=== PATIENT | male | born 1960 | race Caucasian/White ===

== ENCOUNTER 2020-08-03 17:43 | Inpatient (IN) | payer BC, MEDICARE ==
[~2020-08-03] VITALS: Ht 188 cm; Wt 111.1 kg
[~2020-08-03 17:43] MED LIST: ALTERIL PO; ASCO500T24 PO; CHOL400T57 CORPAK; EMLA TOP; OXYC-150 PO; QUET400T PO; [UNRECOGNIZED DRUG - CODE] TP
[2020-08-03 18:36] LABS: BASOPHILS # (AUTO) 0.1 X10'3 (0-0.2); BASOPHILS % (AUTO) 1.3 % (0-1); EOSINOPHILS # (AUTO) 0.2 X10'3 (0-0.9); EOSINOPHILS % (AUTO) 2.9 % (0-6); HEMOGLOBIN 12.7 g/dl (14.0-17.9); LYMPHOCYTES # (AUTO) 1.9 X10'3 (1.1-4.8); LYMPHOCYTES % (AUTO) 25.8 % (21-51); MEAN CORPUSCULAR HEMOGLOBIN 27.8 PG (27.0-31.0); MEAN CORPUSCULAR HGB CONC 34.4 g/dL (33.0-36.5); MEAN CORPUSCULAR VOLUME 80.9 FL (78-98); MONOCYTES # (AUTO) 0.5 X10'3 (0-0.9); MONOCYTES % (AUTO) 6.9 % (2-12); NEUTROPHILS # (AUTO) 4.6 X10'3 (1.8-7.7); NEUTROPHILS % (AUTO) 63.1 % (42-75); PLATELET COUNT 314 X10'3 (140-440); RED BLOOD COUNT 4.58 X10'6 (4.70-6.10); RED CELL DISTRIBUTION WIDTH 14.8 % (11.5-14.5); WHITE BLOOD COUNT 7.3 X10'3 (4.5-11.0)
[2020-08-03 18:53] LABS: ALANINE AMINOTRANSFERASE 14 U/L (12-78); ALBUMIN 3.6 G/DL (3.4-5.0); ALBUMIN/GLOBULIN RATIO 0.9 (1.1-1.5); ALKALINE PHOSPHATASE 146 IU/L (46-116); ANION GAP 10 (8-16); ASPARTATE AMINO TRANSFERASE 11 U/L (10-37); BILIRUBIN,TOTAL 0.6 MG/DL (0.1-1.0); BLOOD UREA NITROGEN 9 MG/DL (7-18); BUN/CREATININE RATIO 12.2 (5.4-32.0); CALCIUM 9.5 MG/DL (8.5-10.1); CHLORIDE 107 MMOL/L (99-107); CREATININE 0.74 MG/DL (0.60-1.10); GLUCOSE 104 MG/DL (70-104); LIPASE 118 U/L (73-393); POTASSIUM 3.5 MMOL/L (3.5-5.1); SODIUM 146 MMOL/L (135-145); TOTAL CARBON DIOXIDE 28.6 MMOL/L (24-32); TOTAL PROTEIN 7.7 G/DL (6.4-8.2); eGFR > 90 ML/MIN
[2020-08-03 19:42] LABS: CLARITY,URINE CLOUDY (Clear); COLOR,URINE YELLOW (Yellow); GLUCOSE, URINE NEGATIVE (Neg); KETONES,URINE NEGATIVE (Neg); LEUKOCYTE ESTERASE ,URINE MODERATE (Neg); NITRITES, URINE NEGATIVE (Neg); OCCULT BLOOD,URINE NEGATIVE (Neg); PH,URINE >=9.0 (4.8-8.0); PROTEIN,URINE 30 mg/dl (Neg)
[2020-08-03] MEDS ORDERED: normal saline 1000ML IV soln IVB ONE ×2 (19:45→20:05)
[2020-08-03 19:55] LABS: UA COLLECTION TYPE FOLEY CATH
[2020-08-03 19:56] LABS: BACTERIA,URINE FEW /HPF (Neg); RBC,URINE NONE SEEN /HPF (0-2); WBC,URINE 20-30 /HPF (0-4)
[2020-08-03 19:57] LABS: AMORPHOUS PHOSPHATES 2+; SQUAMOUS EPITHELIAL CELL,UR FEW /LPF (FEW)
[2020-08-03] MEDS ORDERED: LORazepam 2 mg/ml vial IV ONE (20:05)
[2020-08-03] MEDS ORDERED: morphine 4 MG/ML inj SYRINge IV PRN (20:05)
[2020-08-03] MEDS ORDERED: ondansetron/PF 4mg/2ml inj IV ONE ×2 (20:05→21:40)
[2020-08-03] MEDS ORDERED: proCHLORperazine 10 MG/2 ml inj IV ONE (21:05)
[2020-08-03] MEDS ORDERED: CefTRIAXone/D5W-Rocephin 1gm 50 ML IV ONE (21:40)
[2020-08-03] MEDS ORDERED: QUET-1 PO (22:05)
[2020-08-03] MEDS ORDERED: FURO-149 PO (22:07)
[2020-08-03] MEDS ORDERED: GABA800T11 PO (22:07)
[2020-08-03] MEDS ORDERED: FLO0.4C PO (22:08)
[2020-08-03] MEDS ORDERED: VENL150C2 PO (22:10)
[2020-08-03] MEDS ORDERED: MORP-92 PO (22:11)
[2020-08-03] MEDS ORDERED: METH-797 PO (22:11)
[2020-08-03] MEDS ORDERED: PANT-47 PO (22:13)
[2020-08-03] MEDS ORDERED: POTA10CA44 PO (22:14)
[2020-08-03] MEDS ORDERED: TRAZ-251 PO (22:15)
[2020-08-03] MEDS ORDERED: VENL-191 PO (22:16)
[2020-08-03] MEDS ORDERED: FENO48TA15 PO (22:18)
[2020-08-03] MEDS ORDERED: METO100T7 PO (22:19)
[2020-08-03] MEDS ORDERED: oxyCODONE/APAP 10/325mg tablet PO PRN (22:25)
[2020-08-03] MEDS ORDERED: potassium Cl 20 mEq SR tablet PO PRN ×2 (22:25)
[2020-08-03] MEDS ORDERED: magnesium 2GM in 50ml NS 50 ML IV PRN (22:25)
[2020-08-03] MEDS ORDERED: magnesium 4gm in 100ml NS 100 ML IV PRN (22:25)
[2020-08-03] MEDS ORDERED: HYDROcodone/acetaminophen 5mg/325mg tablet PO PRN (22:25)
[2020-08-03] MEDS ORDERED: acetaminophen 325mg tablet PO PRN ×2 (22:25)
[2020-08-03] MEDS ORDERED: potassium Cl 40MEQ/1/2NS 520ml 520 ML IV PRN ×2 (22:25)
[2020-08-03] MEDS ORDERED: magnesium hydroxide 30ml (MOM) UD suspension PO PRN (22:25)
[2020-08-03] MEDS ORDERED: mag hydrox/Alum hydrox/simeth 30ml oral suspension PO PRN (22:25)
[2020-08-03] MEDS ORDERED: ondansetron/PF 4mg/2ml inj IV PRN (22:25)
[2020-08-03] MEDS ORDERED: proCHLORperazine 10 MG/2 ml inj IV PRN (22:30)
--- NOTE | 2020-08-03 22:37 | NUR ---
PATIENT STOPPED ELIQUIS ABOUT ONE MONTH AGO PATIENT RECENTLY GOT IN TO SEE DR CAMPOS PAD TUFTER
--- NOTE | 2020-08-03 22:37 | NUR ---
New IV started to R hand, IV abx infusing through that
[2020-08-03] MEDS: gabapentin 400mg capsule PO SCH (23:50)
[2020-08-04 01:00] VITALS: BP 136/82
[2020-08-04] MEDS: HYDROcodone/acetaminophen 10/325mg tab PO PRN ×3 (01:59→21:06)
[2020-08-04] MEDS: pantoprazole 40MG/NS 100ML BAG 100 ML IV SCH ×2 (02:39→06:43)
[2020-08-04] MEDS: potassium Cl 20mEq in NS 1,000 ML IV SCH ×3 (02:40→19:58)
[2020-08-04] MEDS: traZODone 50mg tablet PO SCH ×2 (02:42→19:55)
[2020-08-04] MEDS: quetiapine 100mg tablet PO SCH ×2 (02:42→19:55)
[2020-08-04] MEDS: morphine 2 MG/ML inj. syringe IV PRN ×2 (05:13→16:57)
[2020-08-04 05:59] LABS: BASOPHILS # (AUTO) 0.1 X10'3 (0-0.2); BASOPHILS % (AUTO) 1.1 % (0-1); EOSINOPHILS # (AUTO) 0.3 X10'3 (0-0.9); EOSINOPHILS % (AUTO) 2.9 % (0-6); HEMATOCRIT 32.9 % (42.0-52.0); HEMOGLOBIN 11.1 g/dl (14.0-17.9); LYMPHOCYTES # (AUTO) 1.9 X10'3 (1.1-4.8); LYMPHOCYTES % (AUTO) 22.2 % (21-51); MEAN CORPUSCULAR HEMOGLOBIN 27.5 PG (27.0-31.0); MEAN CORPUSCULAR HGB CONC 33.8 g/dL (33.0-36.5); MEAN CORPUSCULAR VOLUME 81.2 FL (78-98); MEAN PLATELET VOLUME 7.8 FL (7.4-10.4); MONOCYTES # (AUTO) 0.7 X10'3 (0-0.9); MONOCYTES % (AUTO) 8.5 % (2-12); NEUTROPHILS # (AUTO) 5.6 X10'3 (1.8-7.7); NEUTROPHILS % (AUTO) 65.3 % (42-75); PLATELET COUNT 257 X10'3 (140-440); RED BLOOD COUNT 4.05 X10'6 (4.70-6.10); RED CELL DISTRIBUTION WIDTH 14.6 % (11.5-14.5); WHITE BLOOD COUNT 8.5 X10'3 (4.5-11.0)
[2020-08-04 06:24] LABS: ALANINE AMINOTRANSFERASE 15 U/L (12-78); ALBUMIN 3.1 G/DL (3.4-5.0); ALBUMIN/GLOBULIN RATIO 0.9 (1.1-1.5); ALKALINE PHOSPHATASE 122 IU/L (46-116); ANION GAP 10 (8-16); ASPARTATE AMINO TRANSFERASE 13 U/L (10-37); BILIRUBIN,TOTAL 0.6 MG/DL (0.1-1.0); BLOOD UREA NITROGEN 9 MG/DL (7-18); BUN/CREATININE RATIO 13.6 (5.4-32.0); CALCIUM 8.6 MG/DL (8.5-10.1); CHLORIDE 108 MMOL/L (99-107); CREATININE 0.66 MG/DL (0.60-1.10); GLUCOSE 99 MG/DL (70-104); MAGNESIUM 1.9 MG/DL (1.5-2.4); POTASSIUM 3.5 MMOL/L (3.5-5.1); SODIUM 144 MMOL/L (135-145); TOTAL CARBON DIOXIDE 26.2 MMOL/L (24-32); TOTAL PROTEIN 6.6 G/DL (6.4-8.2); eGFR > 90 ML/MIN
--- NOTE | 2020-08-04 06:36 | NUR ---
Problems reprioritized. Patient report given, questions answered & plan of care reviewed with AVIVA Vera.
[2020-08-04] MEDS: venlafaxine XR 75mg capsule (Q24H) PO SCH (07:37)
[2020-08-04] MEDS: gabapentin 400mg capsule PO SCH ×3 (07:37→19:55)
[2020-08-04] MEDS: cyclobenzaprine 10mg tablet PO SCH ×3 (07:37→19:55)
[2020-08-04] MEDS: CefTRIAXone/D5W-Rocephin 1gm 50 ML IV SCH (07:37)
[2020-08-04] MEDS: fenofibrate 48mg tablet PO SCH (07:37)
[2020-08-04] MEDS ORDERED: pantoprazole 40mg Tablet.DR PO SCH (08:00)
[2020-08-04] MEDS ORDERED: venlafaxine 37.5mg tablet PO SCH (08:00)
[2020-08-04] MEDS: K and/or MAG REPLACEMENT MC SCH ×2 (08:00→18:39)
[2020-08-04] MEDS ORDERED: pneumococcal 23-VAL P-sac vacc 25 mcg/0.5ml vial IMVAC ONE (10:00)
--- NOTE | 2020-08-04 10:35 | NUR ---
Noted pt current wt 264kg without method or true scaled wt this admit; likely error compared to prior admit wts. Addendum: 08/04/20 at [address] Amended: Links added.
[2020-08-04 13:00] VITALS: BP 133/72
[2020-08-04] MEDS: lactobacillus rhamnosus 10,000 MMU CELLS/CAPSULE PO SCH (19:55)
[2020-08-04] MEDS: pantoprazole 40 MG vial IV SCH (19:56)
[2020-08-04] MEDS: enoxaparin 40mg/0.4ml syringe SQ SCH (19:56)
[2020-08-04 20:00] VITALS: BP 124/87
[2020-08-04] MEDS ORDERED: traZODone 50mg tablet PO SCH (21:00)
[2020-08-04] MEDS ORDERED: quetiapine 100mg tablet PO SCH (21:00)
[2020-08-04] MEDS: tamsulosin 0.4mg capsule PO SCH (21:05)
[2020-08-04] MEDS: metoprolol succinate 25mg (24-HOUR) SR. Tablet PO SCH (21:05)
[2020-08-04 22:00] VITALS: BP 112/75
[2020-08-05] MEDS: HYDROcodone/acetaminophen 10/325mg tab PO PRN ×4 (02:01→17:56)
[2020-08-05] MEDS: potassium Cl 20mEq in NS 1,000 ML IV SCH ×2 (04:11→08:26)
[2020-08-05 04:58] VITALS: BP 115/76
[2020-08-05 06:08] LABS: BASOPHILS # (AUTO) 0.1 X10'3 (0-0.2); BASOPHILS % (AUTO) 1.8 % (0-1); EOSINOPHILS # (AUTO) 0.3 X10'3 (0-0.9); EOSINOPHILS % (AUTO) 6.2 % (0-6); HEMATOCRIT 30.7 % (42.0-52.0); HEMOGLOBIN 10.7 g/dl (14.0-17.9); LYMPHOCYTES # (AUTO) 1.8 X10'3 (1.1-4.8); LYMPHOCYTES % (AUTO) 36.9 % (21-51); MEAN CORPUSCULAR HEMOGLOBIN 27.9 PG (27.0-31.0); MEAN CORPUSCULAR HGB CONC 34.8 g/dL (33.0-36.5); MEAN CORPUSCULAR VOLUME 80.1 FL (78-98); MEAN PLATELET VOLUME 7.5 FL (7.4-10.4); MONOCYTES # (AUTO) 0.3 X10'3 (0-0.9); NEUTROPHILS # (AUTO) 2.4 X10'3 (1.8-7.7); NEUTROPHILS % (AUTO) 48.1 % (42-75); PLATELET COUNT 196 X10'3 (140-440); RED BLOOD COUNT 3.83 X10'6 (4.70-6.10); RED CELL DISTRIBUTION WIDTH 14.9 % (11.5-14.5); WHITE BLOOD COUNT 4.9 X10'3 (4.5-11.0)
[2020-08-05 06:28] LABS: ALANINE AMINOTRANSFERASE 15 U/L (12-78); ALBUMIN 2.8 G/DL (3.4-5.0); ALBUMIN/GLOBULIN RATIO 0.9 (1.1-1.5); ALKALINE PHOSPHATASE 109 IU/L (46-116); ANION GAP 7 (8-16); ASPARTATE AMINO TRANSFERASE 14 U/L (10-37); BILIRUBIN,TOTAL 0.4 MG/DL (0.1-1.0); BLOOD UREA NITROGEN 8 MG/DL (7-18); BUN/CREATININE RATIO 14.3 (5.4-32.0); CALCIUM 8.9 MG/DL (8.5-10.1); CHLORIDE 109 MMOL/L (99-107); CREATININE 0.56 MG/DL (0.60-1.10); GLUCOSE 90 MG/DL (70-104); POTASSIUM 3.7 MMOL/L (3.5-5.1); SODIUM 142 MMOL/L (135-145); TOTAL CARBON DIOXIDE 25.7 MMOL/L (24-32); eGFR > 90 ML/MIN
[2020-08-05] MEDS: morphine 2 MG/ML inj. syringe IV PRN ×3 (06:31→20:36)
--- NOTE | 2020-08-05 06:32 | NUR ---
Patient in room [facility] 4010. I have received report from Buck CHICAS and had the opportunity to ask questions and assume patient care.
[2020-08-05] MEDS: cyclobenzaprine 10mg tablet PO SCH ×3 (08:13→20:35)
[2020-08-05] MEDS: pantoprazole 40 MG vial IV SCH ×2 (08:13→20:35)
[2020-08-05] MEDS: lactobacillus rhamnosus 10,000 MMU CELLS/CAPSULE PO SCH ×2 (08:13→20:35)
[2020-08-05] MEDS: CefTRIAXone/D5W-Rocephin 1gm 50 ML IV SCH (08:13)
[2020-08-05] MEDS: gabapentin 400mg capsule PO SCH ×2 (08:14→17:56)
[2020-08-05] MEDS: fenofibrate 48mg tablet PO SCH (08:14)
[2020-08-05] MEDS: venlafaxine XR 75mg capsule (Q24H) PO SCH (08:14)
[2020-08-05 11:00] VITALS: BP 101/71
[2020-08-05] MEDS: K and/or MAG REPLACEMENT MC SCH ×2 (12:17→20:00)
[2020-08-05] MEDS ORDERED: pneumococcal 23-VAL P-sac vacc 25 mcg/0.5ml vial IMVAC ONE (14:20)
[2020-08-05 18:00] VITALS: BP 124/89
--- NOTE | 2020-08-05 18:50 | NUR ---
patient seen by Dr narendra Erickson consuled with regards suzette pubic catheter . Medicated for pain with effect. worked with PT . Report given to diane CHICAS
[2020-08-05] MEDS: tamsulosin 0.4mg capsule PO SCH (20:35)
[2020-08-05] MEDS: traZODone 50mg tablet PO SCH (20:35)
[2020-08-05] MEDS: quetiapine 100mg tablet PO SCH (20:35)
[2020-08-05] MEDS: metoprolol succinate 25mg (24-HOUR) SR. Tablet PO SCH (20:36)
[2020-08-05] MEDS: enoxaparin 40mg/0.4ml syringe SQ SCH (20:36)
[2020-08-05 22:00] VITALS: BP 123/77
[2020-08-06] MEDS: gabapentin 400mg capsule PO SCH ×4 (00:08→23:25)
[2020-08-06] MEDS: potassium Cl 20mEq in NS 1,000 ML IV SCH ×3 (00:09→19:47)
[2020-08-06] MEDS: HYDROcodone/acetaminophen 10/325mg tab PO PRN ×2 (02:21→19:43)
[2020-08-06] MEDS: morphine 2 MG/ML inj. syringe IV PRN ×4 (04:12→21:00)
[2020-08-06 06:00] VITALS: BP 112/75
[2020-08-06 07:02] LABS: BASOPHILS # (AUTO) 0.1 X10'3 (0-0.2); BASOPHILS % (AUTO) 0.8 % (0-1); EOSINOPHILS # (AUTO) 0.4 X10'3 (0-0.9); EOSINOPHILS % (AUTO) 4.2 % (0-6); HEMATOCRIT 32.6 % (42.0-52.0); HEMOGLOBIN 11.3 g/dl (14.0-17.9); LYMPHOCYTES # (AUTO) 1.4 X10'3 (1.1-4.8); LYMPHOCYTES % (AUTO) 17.1 % (21-51); MEAN CORPUSCULAR HGB CONC 34.7 g/dL (33.0-36.5); MEAN CORPUSCULAR VOLUME 80.7 FL (78-98); MEAN PLATELET VOLUME 7.7 FL (7.4-10.4); MONOCYTES # (AUTO) 0.5 X10'3 (0-0.9); MONOCYTES % (AUTO) 5.4 % (2-12); NEUTROPHILS # (AUTO) 6.1 X10'3 (1.8-7.7); NEUTROPHILS % (AUTO) 72.5 % (42-75); PLATELET COUNT 210 X10'3 (140-440); RED BLOOD COUNT 4.04 X10'6 (4.70-6.10); WHITE BLOOD COUNT 8.4 X10'3 (4.5-11.0)
[2020-08-06 07:31] LABS: ALANINE AMINOTRANSFERASE 12 U/L (12-78); ALBUMIN/GLOBULIN RATIO 0.9 (1.1-1.5); ALKALINE PHOSPHATASE 114 IU/L (46-116); ANION GAP 7 (8-16); ASPARTATE AMINO TRANSFERASE 11 U/L (10-37); BILIRUBIN,TOTAL 0.5 MG/DL (0.1-1.0); BLOOD UREA NITROGEN 9 MG/DL (7-18); BUN/CREATININE RATIO 14.1 (5.4-32.0); CALCIUM 9.2 MG/DL (8.5-10.1); CHLORIDE 106 MMOL/L (99-107); CREATININE 0.64 MG/DL (0.60-1.10); GLUCOSE 86 MG/DL (70-104); MAGNESIUM 1.9 MG/DL (1.5-2.4); POTASSIUM 3.9 MMOL/L (3.5-5.1); SODIUM 140 MMOL/L (135-145); TOTAL CARBON DIOXIDE 26.6 MMOL/L (24-32); TOTAL PROTEIN 6.4 G/DL (6.4-8.2); eGFR > 90 ML/MIN
[2020-08-06] MEDS: K and/or MAG REPLACEMENT MC SCH ×2 (08:00→19:28)
[2020-08-06] MEDS: CefTRIAXone/D5W-Rocephin 1gm 50 ML IV SCH (08:10)
[2020-08-06] MEDS: cyclobenzaprine 10mg tablet PO SCH ×3 (08:11→20:50)
[2020-08-06] MEDS: venlafaxine XR 75mg capsule (Q24H) PO SCH (08:11)
[2020-08-06] MEDS: fenofibrate 48mg tablet PO SCH (08:11)
[2020-08-06] MEDS: lactobacillus rhamnosus 10,000 MMU CELLS/CAPSULE PO SCH ×2 (08:11→19:28)
[2020-08-06] MEDS: pantoprazole 40 MG vial IV SCH ×2 (08:12→19:28)
--- NOTE | 2020-08-06 09:02 | NUR ---
called angio, they do not place or replace suprapubic catheters.
--- NOTE | 2020-08-06 09:44 | NUR ---
Gerard Consult: Gerard 12; skin intact per EMR. Pt admit DX intractable N/V possible r/t gastritis per MD note. N/V improved w/ pt PO 100% avg heart healthy diet receiving adaptive wear for hx CVA and L hemiparesis per EMR. Noted pt current wt 264kg without method or true scaled wt this admit; ANTHONY d/w RN who reports likely error supposed to be pounds. RD requested scaled wt this admit. Will send double proteins TIDWM/chopped meats for satiety/ease of PO given PO hx; dietary notified. LBM 08/03. Will continue to monitor. Rec: 1. continue heart healthy diet per MD; adaptive wear, chopped meats, double proteins TIDWM for satiety 2. routine bowel care 3. scaled wt this admit Addendum: 08/06/20 at [address] Amended: Links added.
[2020-08-06 10:00] VITALS: BP 100/70
--- NOTE | 2020-08-06 10:32 | NUR ---
Dr Bradshaw bedside. was made aware that IR has canceled his order for changing suprapubic catheter. states he will call urology to do the change out at bedside. RN awaiting update.
[2020-08-06 18:00] VITALS: BP 130/78
[2020-08-06] MEDS: enoxaparin 40mg/0.4ml syringe SQ SCH (19:27)
[2020-08-06] MEDS: tamsulosin 0.4mg capsule PO SCH (20:49)
[2020-08-06] MEDS: quetiapine 100mg tablet PO SCH (20:49)
[2020-08-06] MEDS: traZODone 50mg tablet PO SCH (20:50)
[2020-08-06] MEDS: metoprolol succinate 25mg (24-HOUR) SR. Tablet PO SCH (20:51)
[2020-08-06 22:00] VITALS: BP 132/79
[2020-08-07] MEDS: HYDROcodone/acetaminophen 10/325mg tab PO PRN ×4 (00:16→16:19)
[2020-08-07] MEDS: morphine 2 MG/ML inj. syringe IV PRN ×4 (01:44→19:48)
[2020-08-07 06:00] VITALS: BP 120/79
[2020-08-07] MEDS: venlafaxine XR 75mg capsule (Q24H) PO SCH (07:44)
[2020-08-07] MEDS: cyclobenzaprine 10mg tablet PO SCH ×3 (07:44→19:46)
[2020-08-07] MEDS: pantoprazole 40 MG vial IV SCH (07:44)
[2020-08-07] MEDS: lactobacillus rhamnosus 10,000 MMU CELLS/CAPSULE PO SCH ×2 (07:45→19:46)
[2020-08-07] MEDS: gabapentin 400mg capsule PO SCH ×3 (07:45→21:21)
[2020-08-07] MEDS: fenofibrate 48mg tablet PO SCH (07:45)
[2020-08-07 07:48] LABS: BASOPHILS # (AUTO) 0.1 X10'3 (0-0.2); BASOPHILS % (AUTO) 0.8 % (0-1); EOSINOPHILS # (AUTO) 0.4 X10'3 (0-0.9); EOSINOPHILS % (AUTO) 6.2 % (0-6); HEMATOCRIT 32.1 % (42.0-52.0); HEMOGLOBIN 11.1 g/dl (14.0-17.9); LYMPHOCYTES # (AUTO) 1.7 X10'3 (1.1-4.8); LYMPHOCYTES % (AUTO) 27.6 % (21-51); MEAN CORPUSCULAR HEMOGLOBIN 27.8 PG (27.0-31.0); MEAN CORPUSCULAR HGB CONC 34.6 g/dL (33.0-36.5); MEAN CORPUSCULAR VOLUME 80.4 FL (78-98); MEAN PLATELET VOLUME 8.2 FL (7.4-10.4); MONOCYTES # (AUTO) 0.4 X10'3 (0-0.9); MONOCYTES % (AUTO) 5.7 % (2-12); NEUTROPHILS # (AUTO) 3.7 X10'3 (1.8-7.7); NEUTROPHILS % (AUTO) 59.7 % (42-75); PLATELET COUNT 187 X10'3 (140-440); RED BLOOD COUNT 3.99 X10'6 (4.70-6.10); WHITE BLOOD COUNT 6.1 X10'3 (4.5-11.0)
[2020-08-07] MEDS: CefTRIAXone/D5W-Rocephin 1gm 50 ML IV SCH (07:53)
[2020-08-07] MEDS: K and/or MAG REPLACEMENT MC SCH ×2 (07:53→18:47)
[2020-08-07] MEDS: potassium Cl 20mEq in NS 1,000 ML IV SCH (07:53)
[2020-08-07 07:59] LABS: ALANINE AMINOTRANSFERASE 14 U/L (12-78); ALBUMIN 2.9 G/DL (3.4-5.0); ALBUMIN/GLOBULIN RATIO 0.8 (1.1-1.5); ALKALINE PHOSPHATASE 112 IU/L (46-116); ANION GAP 6 (8-16); ASPARTATE AMINO TRANSFERASE 11 U/L (10-37); BILIRUBIN,TOTAL 0.4 MG/DL (0.1-1.0); BLOOD UREA NITROGEN 11 MG/DL (7-18); CALCIUM 8.7 MG/DL (8.5-10.1); CHLORIDE 106 MMOL/L (99-107); CREATININE 0.58 MG/DL (0.60-1.10); GLUCOSE 94 MG/DL (70-104); MAGNESIUM 2.1 MG/DL (1.5-2.4); POTASSIUM 3.9 MMOL/L (3.5-5.1); SODIUM 139 MMOL/L (135-145); TOTAL CARBON DIOXIDE 27.2 MMOL/L (24-32); TOTAL PROTEIN 6.4 G/DL (6.4-8.2); eGFR > 90 ML/MIN
[2020-08-07 10:00] VITALS: BP 91/59
--- NOTE | 2020-08-07 12:27 | NUR ---
PAGER ID: [phone] MESSAGE: [phone] Zhen Wolf RN. Pt requesting regular diet. can I put in new diet order.
--- NOTE | 2020-08-07 16:35 | NUR ---
PAGER ID: [phone] MESSAGE: [id number] Zhen Wolf RN, Pt again asking for regular diet order. Morning labs Na+ 139
[2020-08-07 18:00] VITALS: BP 115/64
[2020-08-07] MEDS: enoxaparin 40mg/0.4ml syringe SQ SCH (19:46)
[2020-08-07] MEDS: tamsulosin 0.4mg capsule PO SCH (19:46)
[2020-08-07] MEDS: metoprolol succinate 25mg (24-HOUR) SR. Tablet PO SCH (21:21)
[2020-08-07] MEDS: traZODone 50mg tablet PO SCH (21:21)
[2020-08-07] MEDS: quetiapine 100mg tablet PO SCH (21:21)
[2020-08-07 22:00] VITALS: BP 128/74
[2020-08-08] MEDS: morphine 2 MG/ML inj. syringe IV PRN ×4 (00:02→13:34)
[2020-08-08 06:00] VITALS: BP 109/72
[2020-08-08 06:52] LABS: BASOPHILS # (AUTO) 0.1 X10'3 (0-0.2); BASOPHILS % (AUTO) 1.3 % (0-1); EOSINOPHILS # (AUTO) 0.4 X10'3 (0-0.9); EOSINOPHILS % (AUTO) 8.2 % (0-6); HEMATOCRIT 33.1 % (42.0-52.0); HEMOGLOBIN 11.4 g/dl (14.0-17.9); LYMPHOCYTES # (AUTO) 1.7 X10'3 (1.1-4.8); LYMPHOCYTES % (AUTO) 32.3 % (21-51); MEAN CORPUSCULAR HEMOGLOBIN 27.9 PG (27.0-31.0); MEAN CORPUSCULAR HGB CONC 34.5 g/dL (33.0-36.5); MEAN CORPUSCULAR VOLUME 80.7 FL (78-98); MEAN PLATELET VOLUME 7.9 FL (7.4-10.4); MONOCYTES # (AUTO) 0.3 X10'3 (0-0.9); MONOCYTES % (AUTO) 6.1 % (2-12); NEUTROPHILS # (AUTO) 2.8 X10'3 (1.8-7.7); NEUTROPHILS % (AUTO) 52.1 % (42-75); PLATELET COUNT 165 X10'3 (140-440); RED CELL DISTRIBUTION WIDTH 15.2 % (11.5-14.5); WHITE BLOOD COUNT 5.3 X10'3 (4.5-11.0)
[2020-08-08 07:19] LABS: ALANINE AMINOTRANSFERASE 15 U/L (12-78); ALBUMIN/GLOBULIN RATIO 0.8 (1.1-1.5); ALKALINE PHOSPHATASE 113 IU/L (46-116); ANION GAP 6 (8-16); ASPARTATE AMINO TRANSFERASE 12 U/L (10-37); BILIRUBIN,TOTAL 0.5 MG/DL (0.1-1.0); BLOOD UREA NITROGEN 17 MG/DL (7-18); BUN/CREATININE RATIO 28.3 (5.4-32.0); CALCIUM 9.3 MG/DL (8.5-10.1); CHLORIDE 104 MMOL/L (99-107); GLUCOSE 90 MG/DL (70-104); MAGNESIUM 2.3 MG/DL (1.5-2.4); SODIUM 138 MMOL/L (135-145); TOTAL CARBON DIOXIDE 28.1 MMOL/L (24-32); TOTAL PROTEIN 6.6 G/DL (6.4-8.2); eGFR > 90 ML/MIN
[2020-08-08] MEDS: cyclobenzaprine 10mg tablet PO SCH ×2 (07:23→13:34)
[2020-08-08] MEDS: gabapentin 400mg capsule PO SCH (07:24)
[2020-08-08] MEDS: fenofibrate 48mg tablet PO SCH (07:24)
[2020-08-08] MEDS: lactobacillus rhamnosus 10,000 MMU CELLS/CAPSULE PO SCH (07:24)
[2020-08-08] MEDS: venlafaxine XR 75mg capsule (Q24H) PO SCH (07:24)
[2020-08-08] MEDS: CefTRIAXone/D5W-Rocephin 1gm 50 ML IV SCH (07:25)
[2020-08-08] MEDS ORDERED: pantoprazole 40mg Tablet.DR PO SCH (07:30)
[2020-08-08] MEDS: K and/or MAG REPLACEMENT MC SCH (08:00)
[2020-08-08 10:00] VITALS: BP 109/68
[2020-08-08] MEDS ORDERED: CEFD300C3 PO (13:40)
--- NOTE | 2020-08-08 16:06 | NUR ---
discharge instructions given to patient, verbalized understanding. Discharged home with . PT tranferred patient from wheelchair to car, patient tolerated transfer well. Patient's condition, stable.
== END 2020-08-08 15:50 | disposition home health service (06) | DRG 690 ==
LOC: ER 17:43 → ED HOLD 22:29 → ORTHO 4S 08-04 00:55
PROVIDERS: ADMIT Family Medicine; ATTEND Family Medicine
PROC: 3E0234Z Introduction of Serum, Toxoid and Vaccine into Muscle, Percutaneous Approach (ICD-10-PCS; principal; 2020-08-05)
DX: N39.0 Urinary tract infection, site not specified (principal); E87.0 Hyperosmolality and hypernatremia; K29.00 Acute gastritis without bleeding; B96.20 Unspecified Escherichia coli [E. coli] as the cause of diseases classified elsewhere; I10 Essential (primary) hypertension; Z66 Do not resuscitate; G89.29 Other chronic pain; M54.9 Dorsalgia, unspecified; Z82.49 Family history of ischemic heart disease and other diseases of the circulatory system; Z23 Encounter for immunization; Z79.899 Other long term (current) drug therapy
CPT/HCPCS: 36415; 74176; 76700; 80053; 81001; 83605; 83690; 83735; 85025; 87077; 87081; 87088; 87186; 90732; 96374; 96375; 97110; 97162; 97530; 97535; 99285; C9113; G0378; J0696; J0780; J1650; J2060; J2270; J2405; J3480; J7030

== ENCOUNTER 2022-11-07 08:01 | Emergency (ER) | payer MEDICARE, MEDICAID ==
[~2022-11-07] VITALS: Ht 185.4 cm; Wt 136.4 kg
[~2022-11-07 08:01] MED LIST changes: -ALTERIL PO; -ASCO500T24 PO; -CHOL400T57 CORPAK; -EMLA TOP; +FENO48TA15 PO; +FLO0.4C PO; +FURO-149 PO; +GABA800T11 PO; +METH-797 PO; +METO100T7 PO; +MORP-92 PO; +PANT-47 PO; +POTA10CA85 PO; +QUET-1 PO; -QUET400T PO; +TRAZ-251 PO; +VENL150C4 PO; -[UNRECOGNIZED DRUG - CODE] TP
[2022-11-07 08:07] VITALS: TEMP 98
[2022-11-07 10:53] LABS: BASOPHILS # (AUTO) 0.1 X10'3 (0-0.2); BASOPHILS % (AUTO) 1.2 % (0-1); EOSINOPHILS # (AUTO) 0.4 X10'3 (0-0.9); HEMOGLOBIN 12.7 g/dl (14.0-17.9); LYMPHOCYTES # (AUTO) 1.3 X10'3 (1.1-4.8); MEAN PLATELET VOLUME 8.3 FL (7.4-10.4); NEUTROPHILS # (AUTO) 3.4 X10'3 (1.8-7.7)
[2022-11-07 10:54] LABS: EOSINOPHILS % (AUTO) 7.2 % (0-6); HEMATOCRIT 36.4 % (42.0-52.0); LYMPHOCYTES % (AUTO) 23.8 % (21-51); MEAN CORPUSCULAR HEMOGLOBIN 27.9 PG (27.0-31.0); MEAN CORPUSCULAR HGB CONC 34.9 g/dL (33.0-36.5); MONOCYTES # (AUTO) 0.4 X10'3 (0-0.9); MONOCYTES % (AUTO) 6.4 % (2-12); NEUTROPHILS % (AUTO) 61.4 % (42-75); PLATELET COUNT 129 X10'3 (140-440); RED BLOOD COUNT 4.55 X10'6 (4.70-6.10); WHITE BLOOD COUNT 5.6 X10'3 (4.5-11.0)
[2022-11-07 10:58] VITALS: BP 127/88; PULSE 77; RESP 16; O2SAT 98
[2022-11-07 11:03] LABS: ALANINE AMINOTRANSFERASE 25 U/L (12-78); ALBUMIN/GLOBULIN RATIO 1.2 (1.1-1.5); ALKALINE PHOSPHATASE 124 IU/L (46-116); ANION GAP 7 (8-16); ASPARTATE AMINO TRANSFERASE 15 U/L (10-37); BILIRUBIN,TOTAL 0.6 MG/DL (0.1-1.0); BLOOD UREA NITROGEN 16 MG/DL (7-18); CALCIUM 9.2 MG/DL (8.5-10.1); CHLORIDE 105 MMOL/L (99-107); CREATININE 0.84 MG/DL (0.60-1.10); GLUCOSE 101 MG/DL (70-104); POTASSIUM 3.5 MMOL/L (3.5-5.1); SODIUM 142 MMOL/L (135-145); TOTAL CARBON DIOXIDE 30.4 MMOL/L (24-32); TOTAL PROTEIN 7.4 G/DL (6.4-8.2); eCRCL 102 ML/MIN; eGFR > 90 ML/MIN
[2022-11-07 11:07] LABS: BILIRUBIN,URINE NEGATIVE (Neg); CLARITY,URINE CLOUDY (Clear); COLOR,URINE YELLOW (Yellow); GLUCOSE, URINE NEGATIVE (Neg); KETONES,URINE NEGATIVE (Neg); LEUKOCYTE ESTERASE ,URINE MODERATE (Neg); NITRITES, URINE POSITIVE (Neg); OCCULT BLOOD,URINE SMALL (Neg); PROTEIN,URINE NEGATIVE (Neg); UROBILINOGEN,URINE 0.2 E.U/dL (0.2-1.0)
[2022-11-07 11:12] LABS: UA COLLECTION TYPE FOLEY CATH
[2022-11-07 11:24] LABS: MUCUS STRANDS NONE SEEN /LPF (Neg); SQUAMOUS EPITHELIAL CELL,UR NONE SEEN /LPF (FEW); WBC CLUMPS,URINE MODERATE /HPF (NEGATIVE); WBC,URINE 50-100 /HPF (0-4)
[2022-11-07 11:25] LABS: BACTERIA,URINE 4+ /HPF (Neg)
[2022-11-07] MEDS ORDERED: CefTRIAXone 1000mg IM Kit (w/lidocaine diluent) IM ONE (11:35)
[2022-11-07] MEDS ORDERED: CIPR-208 PO (12:17)
== END 2022-11-07 12:26 | disposition home or self-care (01) ==
LOC: ER 08:02
DX: N39.0 Urinary tract infection, site not specified (principal); Z79.2 Long term (current) use of antibiotics; Z79.899 Other long term (current) drug therapy
CPT/HCPCS: 80053; 81001; 85025; 87077; 87088; 87186; 96372; 99283; J0696

== ENCOUNTER 2023-06-02 08:51 | Emergency (ER) | payer MEDICARE, MEDICAID ==
[~2023-06-02 08:51] MED LIST changes: +BACL10TA2 PO; +BUME1TAB34 PO; +BUPR-73 PO; +DOCU-395 PO; +FERR324T PO; -FURO-149 PO; -GABA800T11 PO; -METH-797 PO; +METO-395 PO; -METO100T7 PO; -OXYC-150 PO; +PER5325T PO; +POLY17PO59 PO; +POTA-207 PO; -POTA10CA85 PO; +PREG75CA76 PO; -TRAZ-251 PO; -VENL150C4 PO; +VENL225T3 PO
[2023-06-02 09:56] LABS: ALANINE AMINOTRANSFERASE 29 U/L (12-78); ALBUMIN 4.2 G/DL (3.4-5.0); ALBUMIN/GLOBULIN RATIO 1.4 (1.1-1.5); ALKALINE PHOSPHATASE 134 IU/L (46-116); ANION GAP 7 (8-16); ASPARTATE AMINO TRANSFERASE 24 U/L (10-37); BILIRUBIN,TOTAL 0.7 MG/DL (0.1-1.0); BLOOD UREA NITROGEN 14 MG/DL (7-18); BUN/CREATININE RATIO 16.1 (10.0-20.0); CALCIUM 8.6 MG/DL (8.5-10.1); CHLORIDE 102 MMOL/L (99-107); CREATININE 0.87 MG/DL (0.60-1.10); GLUCOSE 97 MG/DL (70-104); LIPASE 21 U/L (16-77); POTASSIUM 3.4 MMOL/L (3.5-5.1); SODIUM 142 MMOL/L (135-145); TOTAL CARBON DIOXIDE 33.2 MMOL/L (24-32); TOTAL PROTEIN 7.3 G/DL (6.4-8.2); eGFR 88 ML/MIN
[2023-06-02 09:57] LABS: BASOPHILS # (AUTO) 0.1 X10'3 (0-0.2); BASOPHILS % (AUTO) 1.9 % (0-1); EOSINOPHILS # (AUTO) 0.5 X10'3 (0-0.9); EOSINOPHILS % (AUTO) 10.5 % (0-6); HEMATOCRIT 39.3 % (42.0-52.0); HEMOGLOBIN 13.5 g/dl (14.0-17.9); LYMPHOCYTES # (AUTO) 1.3 X10'3 (1.1-4.8); LYMPHOCYTES % (AUTO) 26.2 % (21-51); MEAN CORPUSCULAR HEMOGLOBIN 27.6 PG (27.0-31.0); MEAN CORPUSCULAR HGB CONC 34.3 g/dL (33.0-36.5); MEAN CORPUSCULAR VOLUME 80.4 FL (78-98); MEAN PLATELET VOLUME 8.6 FL (7.4-10.4); MONOCYTES # (AUTO) 0.4 X10'3 (0-0.9); MONOCYTES % (AUTO) 7.6 % (2-12); NEUTROPHILS # (AUTO) 2.7 X10'3 (1.8-7.7); NEUTROPHILS % (AUTO) 53.8 % (42-75); PLATELET COUNT 134 X10'3 (140-440); RED BLOOD COUNT 4.89 X10'6 (4.70-6.10); RED CELL DISTRIBUTION WIDTH 15.1 % (11.5-14.5)
[2023-06-02 15:26] LABS: BILIRUBIN,URINE NEGATIVE (Neg); CLARITY,URINE SLIGHTLY CLOUDY (Clear); COLOR,URINE YELLOW (Yellow); GLUCOSE, URINE NEGATIVE (Neg); KETONES,URINE NEGATIVE (Neg); LEUKOCYTE ESTERASE ,URINE MODERATE (Neg); NITRITES, URINE POSITIVE (Neg); OCCULT BLOOD,URINE MODERATE (Neg); PH,URINE 6.5 (4.8-8.0); PROTEIN,URINE TRACE mg/dl (Neg)
[2023-06-02 15:31] LABS: SQUAMOUS EPITHELIAL CELL,UR FEW /LPF (FEW); UA COLLECTION TYPE CLN CATCH MIDSTREAM
[2023-06-02 15:32] LABS: AMORPHOUS PHOSPHATES 3+; HYALINE CASTS 0-3 /LPF (NEGATIVE)
[2023-06-02 15:34] LABS: RBC,URINE 20-50 /HPF (0-2); WBC,URINE 50-100 /HPF (0-4)
[2023-06-02 15:36] LABS: CAL OXALATE CRYSTALS 4+ /HPF (NEGATIVE)
[2023-06-02 15:37] LABS: BACTERIA,URINE FEW /HPF (Neg)
[2023-06-02] MEDS ORDERED: SODI354S PO (15:55)
[2023-06-02] MEDS ORDERED: DOCU-148 PO (15:55)
[2023-06-02] MEDS ORDERED: PRED20TA PO (16:04)
[2023-06-02] MEDS: CefTRIAXone 1000mg IM Kit (w/lidocaine diluent) IM ONE (16:13)
[2023-06-02 16:35] VITALS: BP 152/93; PULSE 98; RESP 18; TEMP 97.8; O2SAT 98
== END 2023-06-02 16:36 | disposition home or self-care (01) ==
LOC: ER 08:52
DX: K59.00 Constipation, unspecified (principal); N39.0 Urinary tract infection, site not specified; K65.4 Sclerosing mesenteritis; Z79.899 Other long term (current) drug therapy
CPT/HCPCS: 36415; 74176; 80053; 81001; 83690; 85025; 87077; 87088; 87186; 96372; 99285; J0696

== ENCOUNTER 2023-06-05 12:28 | Emergency (ER) | payer MEDICARE, MEDICAID ==
[~2023-06-05] VITALS: Ht 188 cm; Wt 90.9 kg
[~2023-06-05 12:28] MED LIST changes: +DOCU-148 PO; +PRED20TA PO; +SODI354S PO
[2023-06-05 12:32] VITALS: TEMP 97.8
[2023-06-05 13:43] LABS: CLARITY,URINE CLOUDY (Clear); COLOR,URINE AMBER (Yellow)
[2023-06-05 13:50] LABS: UA COLLECTION TYPE FOLEY CATH
[2023-06-05 14:00] LABS: BACTERIA,URINE 1+ /HPF (Neg); RBC,URINE TNTC /HPF (0-2)
[2023-06-05 14:01] LABS: WBC,URINE 20-30 /HPF (0-4)
[2023-06-05 14:03] LABS: CAL OXALATE CRYSTALS FEW /HPF (NEGATIVE); SQUAMOUS EPITHELIAL CELL,UR NONE SEEN /LPF (FEW)
[2023-06-05 14:07] LABS: BASOPHILS # (AUTO) 0.1 X10'3 (0-0.2); BASOPHILS % (AUTO) 1.9 % (0-1); EOSINOPHILS # (AUTO) 0.6 X10'3 (0-0.9); EOSINOPHILS % (AUTO) 9.7 % (0-6); HEMATOCRIT 41.1 % (42.0-52.0); HEMOGLOBIN 14.2 g/dl (14.0-17.9); LYMPHOCYTES # (AUTO) 1.6 X10'3 (1.1-4.8); MEAN CORPUSCULAR HEMOGLOBIN 27.6 PG (27.0-31.0); MEAN CORPUSCULAR HGB CONC 34.5 g/dL (33.0-36.5); MEAN PLATELET VOLUME 8.6 FL (7.4-10.4); MONOCYTES # (AUTO) 0.4 X10'3 (0-0.9); MONOCYTES % (AUTO) 6.3 % (2-12); NEUTROPHILS # (AUTO) 3.4 X10'3 (1.8-7.7); NEUTROPHILS % (AUTO) 56.1 % (42-75); PLATELET COUNT 146 X10'3 (140-440); RED BLOOD COUNT 5.14 X10'6 (4.70-6.10); RED CELL DISTRIBUTION WIDTH 15.2 % (11.5-14.5); WHITE BLOOD COUNT 6.1 X10'3 (4.5-11.0)
[2023-06-05 14:24] LABS: ALANINE AMINOTRANSFERASE 33 U/L (12-78); ALBUMIN 4.4 G/DL (3.4-5.0); ALBUMIN/GLOBULIN RATIO 1.5 (1.1-1.5); ALKALINE PHOSPHATASE 123 IU/L (46-116); ANION GAP 9 (8-16); ASPARTATE AMINO TRANSFERASE 27 U/L (10-37); BILIRUBIN,TOTAL 0.7 MG/DL (0.1-1.0); BLOOD UREA NITROGEN 15 MG/DL (7-18); BUN/CREATININE RATIO 18.8 (10.0-20.0); CALCIUM 9.1 MG/DL (8.5-10.1); CHLORIDE 101 MMOL/L (99-107); GLUCOSE 116 MG/DL (70-104); POTASSIUM 3.4 MMOL/L (3.5-5.1); SODIUM 139 MMOL/L (135-145); TOTAL CARBON DIOXIDE 29.2 MMOL/L (24-32); TOTAL PROTEIN 7.4 G/DL (6.4-8.2); eCRCL 108 ML/MIN; eGFR > 90 ML/MIN
[2023-06-05] MEDS: ondansetron/PF 4mg/2ml inj IV ONE (15:25)
[2023-06-05] MEDS: dicyclomine 10mg/ml 2ml ampule IM ONE (15:26)
[2023-06-05] MEDS: fentaNYL/PF 50MCG/1 ML 2ML syringe IV ONE (15:31)
[2023-06-05] MEDS: methylnaltrexone br 12mg/0.6ml inj***SubQ only SQ ONE (16:50)
[2023-06-05] MEDS ORDERED: LINE600T14 PO (18:41)
[2023-06-05] MEDS ORDERED: POLY119P2 PO (18:51)
[2023-06-05] MEDS: linezolid 600mg tablet PO ONE (18:57)
[2023-06-05 19:04] VITALS: BP 132/91; PULSE 73; RESP 20; O2SAT 93
== END 2023-06-05 19:05 | disposition home or self-care (01) ==
LOC: ER 12:29
DX: N39.0 Urinary tract infection, site not specified (principal); K59.00 Constipation, unspecified; Z79.899 Other long term (current) drug therapy
CPT/HCPCS: 36415; 74176; 80053; 81001; 85025; 87077; 87088; 87186; 96372; 96374; 96375; 99285; J0500; J2212; J2405; J3010

== ENCOUNTER 2023-10-29 10:37 | Outpatient (CLI) | payer MEDICARE, MEDICAID ==
[~2023-10-29 10:37] MED LIST changes: +LINE600T14 PO; +POLY119P2 PO; -PRED20TA PO
[2023-10-29 12:07] LABS: BASOPHILS # (AUTO) 0.1 X10'3 (0-0.2); BASOPHILS % (AUTO) 1.6 % (0-1); EOSINOPHILS # (AUTO) 0.4 X10'3 (0-0.9); EOSINOPHILS % (AUTO) 7.5 % (0-6); HEMATOCRIT 36.2 % (42.0-52.0); HEMOGLOBIN 12.4 g/dl (14.0-17.9); LYMPHOCYTES # (AUTO) 1.6 X10'3 (1.1-4.8); LYMPHOCYTES % (AUTO) 27.6 % (21-51); MEAN CORPUSCULAR HEMOGLOBIN 27.5 PG (27.0-31.0); MEAN CORPUSCULAR HGB CONC 34.2 g/dL (33.0-36.5); MEAN CORPUSCULAR VOLUME 80.4 FL (78-98); MEAN PLATELET VOLUME 9.4 FL (7.4-10.4); MONOCYTES # (AUTO) 0.4 X10'3 (0-0.9); MONOCYTES % (AUTO) 7.7 % (2-12); NEUTROPHILS # (AUTO) 3.1 X10'3 (1.8-7.7); NEUTROPHILS % (AUTO) 55.6 % (42-75); PLATELET COUNT 114 X10'3 (140-440); RED CELL DISTRIBUTION WIDTH 14.9 % (11.5-14.5); WHITE BLOOD COUNT 5.6 X10'3 (4.5-11.0)
[2023-10-29 12:15] LABS: HEMOGLOBIN A1C 4.9 % (4.5-6.2)
[2023-10-29 12:27] LABS: ALANINE AMINOTRANSFERASE 41 U/L (12-78); ALBUMIN 3.9 G/DL (3.4-5.0); ALBUMIN/GLOBULIN RATIO 1.3 (1.1-1.5); ALKALINE PHOSPHATASE 110 IU/L (46-116); ANION GAP 6 (8-16); ASPARTATE AMINO TRANSFERASE 32 U/L (10-37); BILIRUBIN,TOTAL 0.9 MG/DL (0.1-1.0); BLOOD UREA NITROGEN 19 MG/DL (7-18); CHLORIDE 103 MMOL/L (99-107); CHOL/HDL RATIO 3.7 (0.00-4.99); CHOLESTEROL 110 MG/DL (0-200); CREATININE 1.12 MG/DL (0.60-1.10); FREE T4 (FREE THYROXINE) 0.96 NG/DL (0.73-1.40); GLUCOSE 108 MG/DL (70-104); HDL CHOLESTEROL 30 MG/DL (35-60); LDL CHOLESTEROL 55 MG/DL (50-100); POTASSIUM 3.5 MMOL/L (3.5-5.1); PRO BRAIN NATRIURETIC PEPTIDE 397 PG/ML (0-125); SODIUM 139 MMOL/L (135-145); THYROID STIMULATING HORMONE 1.59 ulU/ml (0.34-4.50); TOTAL CARBON DIOXIDE 30.4 MMOL/L (24-32); TRIGLYCERIDES 143 MG/DL (20-135); eGFR 66 ML/MIN
== END 2023-10-29 23:59 | disposition home or self-care (01) ==
LOC: RAD 10:37
PROVIDERS: ATTEND Student in an Organized Health Care Education/Training Program
DX: I45.10 Unspecified right bundle-branch block (principal); I10 Essential (primary) hypertension; R00.2 Palpitations; R60.0 Localized edema; K21.9 Gastro-esophageal reflux disease without esophagitis; E78.5 Hyperlipidemia, unspecified; G47.33 Obstructive sleep apnea (adult) (pediatric); R00.8 Other abnormalities of heart beat
CPT/HCPCS: 36415; 80053; 80061; 83036; 83880; 84439; 84443; 85025; 93005

== ENCOUNTER 2023-11-24 07:59 | Outpatient (CLI) | payer MEDICARE, MEDICAID ==
[2023-11-24] MEDS ORDERED: iohexol 300mg/ml 100ml inj. ONE (09:00)
== END 2023-11-24 23:59 | disposition home or self-care (01) ==
LOC: RAD 07:59
PROVIDERS: ATTEND Student in an Organized Health Care Education/Training Program
DX: I65.23 Occlusion and stenosis of bilateral carotid arteries (principal); R42 Dizziness and giddiness; H53.8 Other visual disturbances; R40.4 Transient alteration of awareness
CPT/HCPCS: 70470; 93880; Q9967

== ENCOUNTER 2023-12-23 12:36 | Outpatient (CLI) | payer MEDICARE, MEDICAID ==
[~2023-12-23 12:36] MED LIST changes: +iohexol 300mg/ml 100ml inj. ONE
== END 2023-12-23 23:59 | disposition home or self-care (01) ==
LOC: MRI 12:36
PROVIDERS: ATTEND Nurse Practitioner Family
DX: R42 Dizziness and giddiness (principal); R93.0 Abnormal findings on diagnostic imaging of skull and head, not elsewhere classified; H53.8 Other visual disturbances; R40.4 Transient alteration of awareness
CPT/HCPCS: 70553; Q9967

== ENCOUNTER 2024-01-28 15:50 | Emergency (ER) | payer MEDICARE, MEDICAID ==
[~2024-01-28] VITALS: Ht 188 cm; Wt 127.3 kg
[~2024-01-28 15:50] MED LIST changes: -iohexol 300mg/ml 100ml inj. ONE
[2024-01-28 15:51] VITALS: BP 126/75; PULSE 71; RESP 15; TEMP 97.7; O2SAT 97
[2024-01-28 18:16] LABS: BILIRUBIN,URINE SMALL (Neg); CLARITY,URINE CLEAR (Clear); COLOR,URINE YELLOW (Yellow); GLUCOSE, URINE NEGATIVE (Neg); KETONES,URINE NEGATIVE (Neg); LEUKOCYTE ESTERASE ,URINE MODERATE (Neg); NITRITES, URINE POSITIVE (Neg); OCCULT BLOOD,URINE LARGE (Neg); PROTEIN,URINE >=300 mg/dl (Neg)
[2024-01-28 18:22] LABS: UA COLLECTION TYPE NON-SPECIFIED
[2024-01-28 18:30] LABS: BACTERIA,URINE 1+ /HPF (Neg); RBC,URINE TNTC /HPF (0-2); WBC,URINE TNTC /HPF (0-4)
[2024-01-28 18:31] LABS: MUCUS STRANDS NONE SEEN /LPF (Neg); SQUAMOUS EPITHELIAL CELL,UR FEW /LPF (FEW)
== END 2024-01-28 18:17 | disposition home or self-care (01) ==
LOC: ER 15:51
DX: T83.89XA Other specified complication of genitourinary prosthetic devices, implants and grafts, initial encounter (principal); G89.29 Other chronic pain; M54.9 Dorsalgia, unspecified; Z79.899 Other long term (current) drug therapy; Z98.890 Other specified postprocedural states; Z86.73 Personal history of transient ischemic attack (TIA), and cerebral infarction without residual deficits
CPT/HCPCS: 51705; 81001; 87077; 87088; 87186; 99284; A4314; 99283

== ENCOUNTER 2024-04-14 13:52 | Emergency (ER) | payer MEDICARE, MEDICAID ==
[2024-04-14 14:02] VITALS: TEMP 98.3
[2024-04-14 14:54] LABS: BASOPHILS # (AUTO) 0.1 X10'3 (0-0.2); BASOPHILS % (AUTO) 1.2 % (0-1); EOSINOPHILS # (AUTO) 0.4 X10'3 (0-0.9); EOSINOPHILS % (AUTO) 6.1 % (0-6); HEMATOCRIT 38.3 % (42.0-52.0); HEMOGLOBIN 13.5 g/dl (14.0-17.9); LYMPHOCYTES # (AUTO) 1.4 X10'3 (1.1-4.8); LYMPHOCYTES % (AUTO) 22.2 % (21-51); MEAN CORPUSCULAR HEMOGLOBIN 28.5 PG (27.0-31.0); MEAN CORPUSCULAR HGB CONC 35.4 g/dL (33.0-36.5); MEAN CORPUSCULAR VOLUME 80.7 FL (78-98); MEAN PLATELET VOLUME 8.7 FL (7.4-10.4); MONOCYTES # (AUTO) 0.5 X10'3 (0-0.9); MONOCYTES % (AUTO) 7.3 % (2-12); NEUTROPHILS % (AUTO) 63.2 % (42-75); PLATELET COUNT 134 X10'3 (140-440); RED BLOOD COUNT 4.75 X10'6 (4.70-6.10); RED CELL DISTRIBUTION WIDTH 15.3 % (11.5-14.5); WHITE BLOOD COUNT 6.3 X10'3 (4.5-11.0)
[2024-04-14 15:04] LABS: ALANINE AMINOTRANSFERASE 110 U/L (12-78); ALBUMIN 4.1 G/DL (3.4-5.0); ALBUMIN/GLOBULIN RATIO 1.3 (1.1-1.5); ALKALINE PHOSPHATASE 173 IU/L (46-116); ANION GAP 8 (8-16); ASPARTATE AMINO TRANSFERASE 45 U/L (10-37); BILIRUBIN,TOTAL 0.8 MG/DL (0.1-1.0); BLOOD UREA NITROGEN 11 MG/DL (7-18); BUN/CREATININE RATIO 14.5 (10.0-20.0); CHLORIDE 104 MMOL/L (99-107); CREATININE 0.76 MG/DL (0.60-1.10); GLUCOSE 99 MG/DL (70-104); LIPASE 21 U/L (16-77); POTASSIUM 3.3 MMOL/L (3.5-5.1); SODIUM 143 MMOL/L (135-145); TOTAL CARBON DIOXIDE 30.9 MMOL/L (24-32); TOTAL PROTEIN 7.3 G/DL (6.4-8.2); eGFR > 90 ML/MIN
[2024-04-14 16:00] VITALS: BP 146/116; PULSE 84; O2SAT 95
[2024-04-14] MEDS: CefTRIAXone 1000mg IM Kit (w/lidocaine diluent) IM ONE (16:24)
[2024-04-14 16:25] VITALS: RESP 7
[2024-04-14] MEDS: HYDROcodone/acetaminophen 5mg/325mg tablet PO ONE (16:25)
[2024-04-14] MEDS ORDERED: CEFU250T95 PO (16:35)
== END 2024-04-14 16:47 | disposition home or self-care (01) ==
LOC: ER 13:53
DX: N39.0 Urinary tract infection, site not specified (principal); F17.210 Nicotine dependence, cigarettes, uncomplicated; Z86.73 Personal history of transient ischemic attack (TIA), and cerebral infarction without residual deficits; Z98.890 Other specified postprocedural states
CPT/HCPCS: 36415; 80053; 83690; 85025; 96372; 99284; J0696; 96374

== ENCOUNTER 2024-11-28 13:19 | Outpatient (CLI) | payer MEDICARE, MEDICAID ==
[~2024-11-28 13:19] MED LIST changes: -BUME1TAB34 PO; +BUME1TAB45 PO; -FLO0.4C PO; +TAMS-55 PO
[2024-11-28] MEDS ORDERED: iohexol 300mg/ml 100ml inj. ONE (14:13)
--- NOTE | 2024-11-28 15:22 | VASCULAR REPORT ---
CLINICAL HISTORY: Dizziness, syncope. TECHNIQUE: Peña-scale, color and duplex doppler imaging of the bilateral carotid systems was performe d. COMPARISON: CT CT HEAD W/WO IV CONTRAST on DOS: 11/28/24, MR MRI HEAD on DOS: 12/23/23, CT CT HEAD on DO S: 11/24/23, VASC VL CAROTID on DOS: 11/24/23 Findings: Right carotid system: There is plaque present in the right carotid system. Left carotid system: There is plaque present in the left carotid system. The following flow velocities were obtained (Cm/sec). Right carotid System: ICA PSV: 64 Cm/sec ICA PDV: 27 Cm/sec ICA/CCA Ratio: .8 Left carotid System: ICA PSV: 70 Cm/sec ICA PDV: 25 Cm/sec ICA/CCA Ratio: .8 The right and left common carotid and external carotid arteries are patent. There is antegrade flow i n both vertebral arteries and external carotid arteries. IMPRESSION: LESS THAN 50% RIGHT ICA NARROWING. LESS THAN 50% LEFT ICA NARROWING. Estimation of carotid stenosis is based on velocity parameters that correlate the residual internal c arotid Diameter with that of the more distal vessel in accordance with the north abisai symptomatic Carotid Endarterectomy trial (NASCET).
--- NOTE | 2024-11-28 23:08 | RADIOLOGY REPORT ---
CLINICAL HISTORY: OTHER VISUAL DISTURBANCES,DIZZINESS, BLURRY VISION TECHNIQUE: Helical imaging carried out from skull base to vertex without and intravenous contrast. T his exam was performed according to our departmental dose optimization program. Up-to-date CT equipme nt and radiation dose reduction techniques are utilized as appropriate. CTDIVol: 68.57+ 59.56 mGy DLP: 2383.26 mGy-cm WID: COMPARISON: Reports from MR MRI HEAD on DOS: 12/23/23, CT CT HEAD on DOS: 11/24/23 FINDINGS: Multiple calcified lesions are seen which are likely reported cavernomas although prior imaging is no t available for direct comparison. The ventricles and subarachnoid spaces are normal in size and configuration. There is no midline jac ft or herniation. The nassar white matter interfaces are maintained. The basal cisterns are patent. The re is no evidence of acute intracranial hemorrhage or extra-axial fluid collection. The mastoid air c ells and visualized paranasal sinuses are well-aerated aside from a mucous retention cyst or polyp in the left maxillary sinus. IMPRESSION: 1. No acute intracranial abnormality. 2. Multiple calcified intracranial lesions likely are the known cavernomas although direct comparison to the prior imaging is not available at this time.
== END 2024-11-28 23:59 | disposition home or self-care (01) ==
LOC: RAD 13:19
PROVIDERS: ATTEND Student in an Organized Health Care Education/Training Program
DX: I65.23 Occlusion and stenosis of bilateral carotid arteries (principal); R42 Dizziness and giddiness; H53.8 Other visual disturbances; R40.4 Transient alteration of awareness
CPT/HCPCS: 70470; 93880; Q9967; A4615

== ENCOUNTER 2024-11-29 09:27 | Outpatient (CLI) | payer MEDICARE, MEDICAID ==
--- NOTE | 2024-11-29 10:42 | RADIOLOGY REPORT ---
INDICATION: UNSPECIFIED ABDOMINAL PAIN TECHNIQUE: Multiple real-time sonographic images of the kidneys and bladder were obtained. COMPARISON: CT CT ABDOMEN PELVIS on DOS: 06/05/23, CT CT ABDOMEN PELVIS on DOS: 06/02/23, US ULTRASOUND K ARASHNEY NON VASC on DOS: 11/30/22, CT CT ABDOMEN PELVIS on DOS: 11/27/22, CT CT ABDOMEN PELVIS on DOS: 11/25 FINDINGS: The right kidney measures 11 cm in length, which is normal in size. There is normal echogen icity of the right kidney. No hydronephrosis. The left kidney measures 10 cm in length, which is normal in size. There is normal echogenicity of th e left kidney. No hydronephrosis. 5 mm nonobstructing left renal stone Cronin catheter visualized. IMPRESSION: 5 mm left renal stone. No hydronephrosis.
== END 2024-11-29 23:59 | disposition home or self-care (01) ==
LOC: RAD 09:27
PROVIDERS: ATTEND Nurse Practitioner Family
DX: N20.0 Calculus of kidney (principal); R10.9 Unspecified abdominal pain; R39.9 Unspecified symptoms and signs involving the genitourinary system
CPT/HCPCS: 76770